=== PATIENT | male | born 1950 | race Caucasian/White ===

== ENCOUNTER 2017-03-28 14:35 | Emergency (ER) | payer MEDICARE, OTHER ==
[~2017-03-28] VITALS: Ht 170.2 cm; Wt 83.9 kg
== END 2017-03-28 16:05 | disposition short-term general hospital (02) ==
LOC: ER 14:35 → RT 14:37 → ER 16:05
DX: R07.89 Other chest pain (principal); I10 Essential (primary) hypertension; Z88.0 Allergy status to penicillin; Z87.891 Personal history of nicotine dependence